=== PATIENT | male | born 1960 | race Caucasian/White ===

== ENCOUNTER 2017-05-11 10:11 | Day surgery (SDC) | payer OTHER ==
[~2017-05-11] VITALS: Ht 172.7 cm; Wt 66.4 kg
[~2017-05-11 10:11] MED LIST: ASPI81 PO; CARV3.12 PO; COMPTAB11 PO; PRAV20 PO; PRIN10TA PO
[2017-05-11 11:00] VITALS: BP 190/110; PULSE 56; RESP 17; TEMP 97.7; O2SAT 100
[2017-05-11] MEDS ORDERED: POVIDONE IODINE 5% (ANTISEPSIS KIT) 4 APPLICATIONS EACH NARE PRN (11:00)
[2017-05-11] MEDS ORDERED: SODIUM CHLORID 0.9% 500 ML IV PRN (11:00)
[2017-05-11] MEDS ORDERED: POVIDONE IODINE 5% (ANTISEPSIS KIT) 4 APPLICATIONS EACH NARE SCH (11:00)
[2017-05-11] MEDS ORDERED: LACTATED RINGER'S 1000 ML IV PRN (11:00)
[2017-05-11] MEDS ORDERED: CHLORHEXIDINE GLUCONATE 2 % 1 PACK (2 CLOTHS) TOPICAL SCH (11:00)
[2017-05-11] MEDS ORDERED: MUPIROCIN 2% OINT 1 APPLIC/GM SYR NASAL SCH (11:00)
[2017-05-11] MEDS ORDERED: VANCOMYCIN 1000 MG/NS 250 ML IV SCH ×2 (11:00)
[2017-05-11] MEDS ORDERED: ceFAZolin 2 GM PREMIX 50 ML IV SCH (11:00)
[2017-05-11] MEDS ORDERED: CHLORHEXIDINE GLUCONATE 2 % 1 PACK (2 CLOTHS) TOPICAL PRN (11:00)
[2017-05-11] MEDS ORDERED: NS 1000 ML IV SCH (11:00)
[2017-05-11] MEDS ORDERED: METOPROLOL TARTRATE 25 MG TAB PO PRN (11:00)
[2017-05-11] MEDS ORDERED: INSULIN HUMAN REGULAR 1,000 UNITS/10 ML VIAL SQ PRN (11:00)
[2017-05-11 11:01] LABS: AUTOMATED NEUTROPHIL # 4.2 TH/MM3 (1.8-7.7); BASOPHIL # 0.1 TH/MM3 (0-0.2); BASOPHIL % 1.2 % (0.0-2.0); EOSINOPHIL # 0.2 TH/MM3 (0-0.4); EOSINOPHIL % 3.6 % (0.0-4.0); HEMATOCRIT 44.3 % (39.0-51.0); HEMO FLAGS DIFF FINAL; LYMPH % 20.6 % (9.0-44.0); LYMPHOCYTE # 1.3 TH/MM3 (1.0-4.8); MEAN CELL VOLUME 90.5 FL (80.0-100.0); MEAN CORPUSCULAR HEMOGLOBIN 30.3 PG (27.0-34.0); MEAN CORPUSCULAR HGB CONC 33.5 % (32.0-36.0); MONO % 8.7 % (0.0-8.0); NEUT % 65.9 % (16.0-70.0); PLATELET COUNT 281 TH/MM3 (150-450); RED CELL DISTRIBUTION WIDTH 13.8 % (11.6-17.2); WHITE BLOOD COUNT 6.3 TH/MM3 (4.0-11.0)
[2017-05-11] MEDS ORDERED: CARV3.12 PO (11:04)
[2017-05-11] MEDS ORDERED: LISI10TA3 PO (11:04)
[2017-05-11] MEDS ORDERED: PRAV40TA2 PO (11:04)
[2017-05-11] MEDS ORDERED: ASPI81CH PO (11:04)
[2017-05-11 11:09] VITALS: BP 169/94
[2017-05-11 11:11] LABS: APTT (PATIENT) 26.3 SEC (24.3-30.1); INTERNATIONAL NORMALIZED RATIO 1.1 RATIO; PROTHROMBIN TIME - PATIENT 11.9 SEC (9.8-11.6)
[2017-05-11 11:15] LABS: BICARBONATE 30.4 MEQ/L (21.0-32.0); POTASSIUM 3.8 MEQ/L (3.5-5.1)
[2017-05-11] MEDS ORDERED: MIDAZOLAM HCL 2 MG/2 ML VIAL IV ONE (12:00)
[2017-05-11] MEDS ORDERED: PHENYLEPH/NS 1000 MCG/10 ML SYR IV ONE (12:00)
[2017-05-11] MEDS ORDERED: PROPOFOL 200 MG/20 ML AMP IV ONE (12:00)
[2017-05-11] MEDS ORDERED: GLYCOPYRROLATE 1 MG/5 ML SYRINGE IV PUSH ONE (12:00)
[2017-05-11] MEDS ORDERED: LIDOCAINE HCL 1% PF 5 ML AMPULE OTHER ONE (12:00)
[2017-05-11] MEDS ORDERED: VANCOMYCIN 500 MG VIAL ONE (14:14)
[2017-05-11] MEDS ORDERED: LIDOCAINE HCL 2% 50 ML VIAL ONE (14:14)
--- NOTE | 2017-05-11 15:32 | CATHPROC ---
Sanrad HIS Report Study Information Study Number Admission Scheduled Start Study Start [id number] May 11 2017 10:11AM 05/11/2017 May 11 2017 1:47PM [place] [facility] Cardiac Pacer/ICD Admit Source Facility Department Other [facility] - Lawn Service Worker Physician and Clinical Staff Initial Monse Herrera Parachute Repairer Lui Sarah,SHAHEEN Recorder Richardson Navarro,RT(R) Scrub Belkis Thomas,GIFT WRAPPER TECH2 Equipment Time Major Gifts Officer Description Size Mfg Part Number Used/Scraped [id number] 14:08 Revelation DRAPE, IOBAN 2 [id number] 26cm x 20cm Used *[id number] TP-1103 14:08 Revelation SUTURE, STRIP PLUS 1/2" * Used *[id number] 14:08 [employer]elerivet PACER ADHESIVE, MASTISOL 2/3CC 2/3CC 0523-48 Used 14:08 [employer] PACER CURTIS, LIMB * 2530 *[id number] Used [id number] 14:08 [employer] PACER PACK, PACER CUSTOM * Used *[id number] 14:08 [employer] PACER PEN, SKIN DUAL W/ RULER * Used *[id number] 14:42 Needle Sponge Count 1 111 Used 14:43 Needle Sponge Count 2 2 Used 14:43 Needle Sponge Count 2 22 Used 14:43 Needle Sponge Count 25 1 Used 15:24 Needle Sponge Count 30 1 Used [id number] *[id number] SUTURE, 0 ETHIBOND [CT1] (CX21D), 8pk SUTURE, 2-0 VICRYL [CT1] (USA297O) SUTURE, 2-0 VICRYL [CT1] ([id number]) SUTURE, 4-0 VICRYL [PS2] (ZIO947Q) [id number] 14:08 [employer],WARM AIR CCL * Used *[id number] [facility] PAD, ELECTROSURGICAL 14:08 * [id number] *[id number] Used SURGICAL GROUNDING ORANGE DEFIBRILLATOR, EVERA MRI XT 15:13 VITATRON MEDTRONIC DDE-DDDR [id number] Used DR 14:18 VITATRON MEDTRONIC PLASMABLADE, PEAD 3.0S * [id number] Used [id number] 14:08 [employer] YANET. ELECTRODE, PRO-PADZ BIPHASIC * Used *[id number] History: Allergies Allergy Reaction No Known Allergies History: Risk Factors Family History of Hypertension Dyslipidemia Previous [place] Previous Heart Failure Premature CAD Yes Yes No No No Prior Valve Prior PCI Prior CABG Surgery No No No Cerebrovascular Peripheral Artery Chronic Lung On Dialysis Diabetes Disease Disease Disease No No No No No History: CV Disease Selection Items Cardiomyopathy hypertrophic History: Stress Tests Stress or Imaging Studies Performed No History: Other Disease Selection Items Gerd HTN History: Other Current Smoker No Labs Hgb (g/dl) Hct (%) RBC (MIL/MM3) WBC (l/cumm) Platelets (thousands) 11.60-17.00 35.00-51.00 4.00-5.90 4.00-11.00 150.00-450.00 14.9 44.3 4.9 6.3 281 Glucose (mg/dl) BUN (mg/dl) Creatinine (mg/dl) BUN:Creatinine (1:x) 74.00-106.00 7.00-18.00 0.50-1.30 10.00-20.00 119 10 1.1 9.1 Na (meq/l) K (meq/l) Cl (meq/l) CO2 (mmol/L) Ca (mg/dl) 136.00-145.00 3.50-5.10 98.00-107.00 21.00-32.00 8.50-10.10 142 3.8 105 30.4 8.9 PT (sec) PTT (sec) INR (PTT:PT) 9.80-11.60 24.30-30.10 0.90-1.10 11.9 26.3 1.1 CPK-MB (ng/ML) 0.50-3.60 Not Drawn Medication Medication Total Dose (Bolus/Oral) Medication Total Dosage/Unit 2% XYLOCAINE 50 mL Medications (Bolus/Oral) Medication Time Given Dosage/Unit Administered By Reason 2% XYLOCAINE 05/11/2017 2:44:41 PM 50 mL Monse Coyne 50 mL 2% XYLOCAINE given in lab by Monse Coyne in Left shoulder via Subcutaneous. Medication (Drip) Medication Time Given Dosage/Unit Concentration/Unit Diluent (ml) Solutio n ANCEF 05/11/2017 2:06:03 PM 2 g 2 g ANCEF given in lab by Lui Sarah RN in Right Antecubital via Peripheral IV. IV Solutions 05/11/2017 2:09:49 PM 0 mL (IV) 500 NaCl .9 IV Solutions given in lab by Lui Sarah RN in Left Antecubital via Peripheral IV. Pump/Drip Flow = 20 ml/hr using NaCl .9. VANCOMYCIN DRIP 05/11/2017 2:06:17 PM 1 g 1 g VANCOMYCIN DRIP given in lab by Lui Sarah RN in Right Antecubital via Peripheral IV. Initial Case Assessment Cardiovascular HR Rhythm NIBP Chest Pain 75 Sinus/Marcos 148/81 0 Edema Present Skin color Skin None Normal Warm Dry Neurological State Oriented to time-place- Alert Moves all extremities person Respiration - General Respiration Rate SpO2 (%) O2 (lpm) (B/min) 15 98 0 Chronological Log Time Study Chronological Log 13:45:29 Patient arrived via Bed. 13:47:33 Patient Name, D.O.B, / Armband Verified By R.N. 13:47:34 Consent signed by the physician and the patient and verified by the Lawn Service Worker staff. 13:47:35 Pre-op and post- op instructions given; patient acknowledges understanding of instruction s. 13:47:38 Presedation assessment performed by Lawn Service Worker RN. 13:49:28 Patient has been NPO for More than 6Hrs. 13:49:29 Skin Breakdown- 13:50:39 Patient Warmer Placed on the Table. 13:50:40 Laura Prominences Protected 13:50:48 A # 20 IV was noted in the Antecubital (left). Grade = 0 14:01:45 Reference ECG taken 14:05:36 A # 20 IV was noted in the Antecubital (right). Grade = 0 14:06:03 2 g ANCEF given in lab by Lui Sarah, SHAHEEN in Right Antecubital via Peripheral IV. 14:06:17 1 g VANCOMYCIN DRIP given in lab by Lui Sarah RN in Right Antecubital via Periphera l IV. 14:06:44 History and physical on the chart or being dictated. Assessment: Initial Case, HR=75 BPM, Rhythm=Sinus/Marcos, ZEVP=331/81 mmhg, Chest Pain=0, Miguel Angel a=None, Color=Normal, Skin = Warm, Dry 14:06:48 Neurological: State=Alert, Ox3, BATES Respiration: Resp=15 B/min, SpO2=98 %, O2=0 lpm IV Solutions given in lab by Lui Sarah, RN in Left Antecubital via Peripheral IV. Pump/Dri p Flow = 20 ml/hr using 14:09:49 NaCl .9. 14:10:59 Anesthesia at bedside. Assumes care of patient. 14:13:08 Left Upper Chest Prepped Times Two. 14:19:49 Bovie ground pad applied to: 14:20:50 Disposable Defibrillator Pads Placed On Patient. 14:24:39 MD paged 14:39:21 MD arrived. First Sponge And Instrument Count Done by Lui Sarah, RN. 14:41:30 Hypo's: 2, Sponges: 25, Bovie/scratch: 2 Sutures: 3, Blades: 3, Instruments: 26, Syveck Patches: 0 Time Out. Correct patient, procedure, procedure equipment, site and side verified with physicia n present. Time 14:44:21 concurred by MD, individual staff and TELEGRAPHIC TYPEWRITER MECHANIC. 14:44:35 Case Start 14:44:41 50 mL 2% XYLOCAINE given in lab by Monse Coyne in Left shoulder via Subcutaneous. 14:45:38 Surgical Incision Made. 14:48:40 A pocket was created at the L Upper Chest. 14:55:09 A device was explanted. 14:55:23 Pocket flushed with antibiotic solution 14:56:40 A DEFIBRILLATOR, EVERA MRI XT DR DDE-DDDR was connected and placed in the pocket. 15:10:18 The pocket was closed. 15:14:30 A one Joul DFT was performed. 15:14:42 Antibiotic sponges removed from the surgical pocket. 15:21:20 Case End 15:21:25 Steri-strips and a sterile dressing applied to site. The Final Sponge And Instrument Count Done by Monse Coyne. 15:21:28 Hypo's: 2, Sponges: 30, Bovie/scratch: 2 Sutures: 3, Blades: 3, Instruments: 26, Syveck Patches: 0 15:25:27 A DEFIBRILLATOR, EVERA MRI XT DR DDE-DDDR was connected and placed in the pocket. 15:25:42 Implant Procedure was performed. 15:25:51 A ICD Removal . (Dual) 15:26:24 A ICD Implant . (Dual) 15:27:35 Bedside Report will be given. 15:32:07 A sling was placed on the affected arm. End Study - Maximum Contrast Load Max Contrast Load (mL) 301.9 End Study - Patient Disposition Complications Not selected
[2017-05-11] MEDS ORDERED: ACETAMINOPHEN 325 MG TAB PO PRN (15:45)
--- NOTE | 2017-05-11 20:50 | MR ---
cc: MONSE COYNE DATE 05/11/17 INDICATION End-of-life of Medtronic dual-chamber defibrillator, documented familiar or inherited condition with high risk of ventricular tachyarrhythmia, hypertrophic obstructive cardiomyopathy, family history of sudden cardiac at early age. Atrial lead placed for supraventricular tachycardia differentiation. PROCEDURE PERFORMED 1. Explantation of end-of-life Medtronic dual-chamber defibrillator. 2. Placement of Medtronic dual-chamber defibrillator. 3. Testing of Medtronic dual-chamber defibrillator system. ACCESS SITE Left subclavicular area. EQUIPMENT USED Generator: Medtronic model [id number], dual-chamber MRI compatible defibrillator, serial number [id number]. Right atrial lead: Medtronic model 4076-45 cm screw-in atrial lead (serial number [id number]) placed 11/18/2009. Ventricle lead: Medtronic model 6947-58 cm screw-in ventricle lead (serial number [id number]) placed 11/18/2009. LEAD TESTING Right atrial lead P-wave 2.9 mV, lead impedance 589 ohms, pacing threshold 0.5 volts at 0.4 milliseconds. Right ventricle lead R-wave 19.1 mV, lead impedance 350 ohms, pacing threshold 1.0 volts at 0.4 milliseconds. Ventricular fibrillation was induced on one occasion and terminated with a single 20 joules shock with an impedance of 42 ohms. PARAMETERS Mode AAIR/DDDR, lower rate 60, upper rate 145. 1. Successful explantation and replacement of end-of-life Medtronic dual-chamber defibrillator. 2. Successful testing of Medtronic dual-chamber defibrillator system. 3. Defibrillation threshold of 20 joules or less. DISPOSITION Mr. Velez will be monitored on telemetry after his procedure. He was given preoperative antibiotics. He will be discharged home later today if stable. I will see him back for a wound check and chronic device reprogramming in our office within 2 weeks. He will then see Dr. Brock, his primary scarifier operator, for long-term device followup. Monse Coyne MD OQ/FABIOLA /3:32 PM /8:33 PM ALISA
--- NOTE | 2017-05-12 14:40 | EKG ---
Date Performed: 05/11/2017 Time Performed: 11:02:34 PTAGE: 57 years EKG: Sinus bradycardia with sinus arrhythmia Rightward axis Right bundle branch block Inferior/l ateral T wave changes may be due to myocardial ischemia ST-T WAVE ABNORMALITY CONCERNING FOR ACUTE IS CHEMIA IN ANTERIOR PRECORDIAL LEADS Abnormal ECG PREVIOUS TRACING : 11/19/2009 05.50 DOCTOR: Yunior Otto Interpretating Date/Time 05/12/2017 14:38:46
== END 2017-05-11 19:40 | disposition home or self-care (01) ==
LOC: HDIC 10:11 → HDOC 10:11
PROVIDERS: ATTEND Internal Medicine Interventional Cardiology
DX: Z45.02 Encounter for adjustment and management of automatic implantable cardiac defibrillator (principal); I47.1 Supraventricular tachycardia; I42.2 Other hypertrophic cardiomyopathy; I45.10 Unspecified right bundle-branch block; I10 Essential (primary) hypertension; E78.2 Mixed hyperlipidemia; R79.1 Abnormal coagulation profile; Z79.82 Long term (current) use of aspirin
CPT/HCPCS: 00530; 33263; 80048; 85025; 85610; 85730; 93005; C1721; J0690; J2250; J2370; J3010; J3370; J7050; C1722